=== PATIENT | female | born 1985 | race Caucasian/White ===

== ENCOUNTER 2021-10-15 18:44 | Inpatient (IN) | payer OTHER ==
[~2021-10-15] VITALS: Ht 160 cm; Wt 68.0 kg
[2021-10-15] MEDS ORDERED: PRENATAL TABLE1 EAC3 PO (18:57)
== END 2021-10-17 11:57 | disposition home or self-care (01) | DRG 833 ==
LOC: LDR 18:44 → OB/GYN 10-16 09:59
PROVIDERS: ADMIT Obstetrics & Gynecology Maternal & Fetal Medicine; ATTEND Obstetrics & Gynecology Maternal & Fetal Medicine
PROC: 4A1HXCZ Monitoring of Products of Conception, Cardiac Rate, External Approach (ICD-10-PCS; principal; 2021-10-15)
PROC: BY4FZZZ Ultrasonography of Third Trimester, Single Fetus (ICD-10-PCS; 2021-10-16)
PROC: BU4CZZZ Ultrasonography of Uterus and Ovaries (ICD-10-PCS; 2021-10-16)
DX: O60.03 Preterm labor without delivery, third trimester (principal); Z3A.29 29 weeks gestation of pregnancy; Z20.822 Contact with and (suspected) exposure to COVID-19

== ENCOUNTER 2021-10-20 09:34 | Outpatient (CLI) | payer OTHER ==
[~2021-10-20 09:34] MED LIST: PRENATAL TABLE1 EAC3 PO
== END 2021-10-20 10:28 | disposition home or self-care (01) ==
LOC: NST 09:34
PROVIDERS: ATTEND Obstetrics & Gynecology Maternal & Fetal Medicine
DX: Z34.83 Encounter for supervision of other normal pregnancy, third trimester (principal)

== ENCOUNTER 2021-12-21 05:34 | Outpatient (CLI) | payer OTHER ==
[~2021-12-21] VITALS: Ht 160 cm; Wt 71.7 kg
[2021-12-21] MEDS ORDERED: PEPCID20 MG (06:52)
[2021-12-21] MEDS ORDERED: ZYRTEC10 MG (06:53)
== END 2021-12-21 10:02 | disposition home or self-care (01) ==
LOC: OB/GYN 05:34 → OBS/DEL 05:34 → LDR 05:34 → OBS/DEL 10:02 → LDR 10:02 → EDSTATUS 01-01 08:34 → OB/GYN 01-01 10:16
PROVIDERS: ATTEND Obstetrics & Gynecology Maternal & Fetal Medicine
DX: O47.1 False labor at or after 37 completed weeks of gestation (principal); Z3A.38 38 weeks gestation of pregnancy; Z20.822 Contact with and (suspected) exposure to COVID-19

== ENCOUNTER 2021-12-30 07:07 | Inpatient (IN) | payer OTHER ==
[~2021-12-30] VITALS: Ht 160 cm; Wt 72.6 kg
[~2021-12-30 07:07] MED LIST changes: +PEPCID20 MG; +ZYRTEC10 MG
== END 2022-01-02 11:39 | disposition home or self-care (01) | DRG 807 ==
LOC: LDR 07:07 → SURG-SUITE 07:07
PROVIDERS: ADMIT Obstetrics & Gynecology; ATTEND Obstetrics & Gynecology
PROC: 10E0XZZ Delivery of Products of Conception, External Approach (ICD-10-PCS; principal; 2021-12-30)
PROC: 0W8NXZZ Division of Female Perineum, External Approach (ICD-10-PCS; 2021-12-30)
PROC: 4A1HXCZ Monitoring of Products of Conception, Cardiac Rate, External Approach (ICD-10-PCS; 2021-12-30)
PROC: 30233N1 Transfusion of Nonautologous Red Blood Cells into Peripheral Vein, Percutaneous Approach (ICD-10-PCS; 2021-12-31)
DX: O72.1 Other immediate postpartum hemorrhage (principal); Z37.0 Single live birth; Z3A.39 39 weeks gestation of pregnancy; Z20.822 Contact with and (suspected) exposure to COVID-19

== ENCOUNTER 2022-02-13 16:15 | Inpatient (IN) | payer OTHER ==
[~2022-02-13] VITALS: Ht 160 cm; Wt 61.2 kg
== END 2022-02-15 10:49 | disposition home or self-care (01) | DRG 769 ==
LOC: LDR 16:15 → SURG-SUITE 20:25
PROVIDERS: ADMIT Obstetrics & Gynecology; ATTEND Obstetrics & Gynecology
PROC: 0UDB7ZZ Extraction of Endometrium, Via Natural or Artificial Opening (ICD-10-PCS; 2022-02-13)
PROC: 0UT90ZZ Resection of Uterus, Open Approach (ICD-10-PCS; principal; 2022-02-13 17:15)
DX: O72.1 Other immediate postpartum hemorrhage (principal); N72 Inflammatory disease of cervix uteri; Z20.822 Contact with and (suspected) exposure to COVID-19